=== PATIENT | male | born 1985 | race African-American/Black ===

== ENCOUNTER 2017-03-24 15:05 | Emergency (ER) | payer OTHER ==
[~2017-03-24] VITALS: Ht 180.3 cm; Wt 108.2 kg
[2017-03-24 15:06] VITALS: BP 147/83
== END 2017-03-24 16:12 | disposition left against medical advice (07) ==
LOC: EMS 15:06
DX: R00.2 Palpitations (principal)
CPT/HCPCS: 93005; 99283